=== PATIENT | female | born 1990 | race African-American/Black ===

== ENCOUNTER 2020-09-04 12:26 | Outpatient (CLI) | payer OTHER, SELFPAY ==
--- NOTE | ~2020-09-04 | US_ITS ---
EXAMINATION: US OB /maternal detail DATE: 09/04/2020 13:26 INDICATION: Second trimester anatomic survey TECHNIQUE: Real-time ultrasound of the pelvis was performed. COMPARISON: None. FINDINGS: There is a single living fetus in vertex presentation. The placenta is posterior. heart rate is 167 beats per minute (bpm). cardiac activity and movement are noted. The amniotic fluid index is subjectively normal. The following anatomy was identified as normal: 4 chamber heart 3 vessel cord cord insertion kidneys urinary bladder stomach spine diaphragm ventricles cisterna magna cerebellum The following biometric data were obtained: Biparietal diameter (BPD): 4.9 cm; head circumference (HC): 17.9 cm; abdominal circumference (AC): 14 .8 cm; femur length (FL): 3.6 cm. These measurements are concordant. Estimated weight is 378 g +/- 56 g, which correlates with the 59th percentile when 01/18/2021 is used as estimated date of delivery. As single measurements, these parameters are each equal to the following estimated gestational ages w ith ranges of +/- 2 standard deviations: BPD: 20 weeks 6 days +/- 1 weeks 5 days. HC: 20 weeks 3 days +/- 1 weeks 3 days. AC: 20 weeks 1 days +/- 2 weeks 0 days. FL: 21 weeks 5 days +/- 1 weeks 6 days. estimated gestational age based solely on measurements from this exam is 20 weeks 6 days +/- 1 weeks 3 days. IMPRESSION: 1. Single living fetus in vertex presentation. 2. Estimated weight is 378 g +/- 56 g, which correlates with the 59th percentile when 01/18/2021 is used as estimated date of delivery. Reviewed, dictated and finalized at location A. [employer] IMPRESSION: 1. Single living fetus in vertex presentation. 2. Estimated weight is 378 g +/- 56 g, which correlates with the 59th per centile when 01/18/2021 is used as estimated date of delivery.
== END 2020-09-04 12:27 | disposition home or self-care (01) ==
PROVIDERS: Visit Provider Obstetrics & Gynecology
DX: Z34.92 Encounter for supervision of normal pregnancy, unspecified, second trimester (principal); Z3A.20 20 weeks gestation of pregnancy
CPT/HCPCS: 76805